=== PATIENT | male | born 1960 | race Caucasian/White ===

== ENCOUNTER 2021-10-10 04:42 | Emergency (ER) | payer BC ==
[2021-10-10 05:16] LABS: RED BLOOD COUNT 4.69 M/UL (4.20-5.50); WHITE BLOOD COUNT 8.9 K/UL (4.5-11.0)
[2021-10-10 06:02] LABS: BUN/CREATININE RATIO 19 (0-10)
[2021-10-10] MEDS ORDERED: ENDOCET 5-3251 EACH PO ×3 (08:10→08:44)
[2021-10-10] MEDS ORDERED: TORADOL 10 MG T10 MG PO (09:10)
[2021-10-10] MEDS ORDERED: ZOFRAN 4 MG TAB4 MG PO (09:10)
[2021-10-10] MEDS ORDERED: FLOMAX0.4 MG PO (09:10)
== END 2021-10-10 09:15 | disposition home or self-care (01) ==
LOC: EDBD 04:42 → ER1 04:42
PROVIDERS: Physician Assistant
DX: N13.2 Hydronephrosis with renal and ureteral calculous obstruction (principal); E11.9 Type 2 diabetes mellitus without complications; I10 Essential (primary) hypertension
CPT/HCPCS: 80053; 81001; 83690; 85025; 96374; 96375; 99284; J1885; J2270; J2405